=== PATIENT | male | born 1925 | race Caucasian/White ===

== ENCOUNTER 2017-07-19 11:14 | Day surgery (SDC) | payer MEDICARE ==
[~2017-07-19 11:14] MED LIST: CIPROFLOXACIN HCL 500 MG TABLET PO PRN
[2017-07-19] MEDS ORDERED: LIDOCAINE HCL 10 APPL CARTRIDGE TP ONE (12:23)
[2017-07-19 15:05] VITALS: BP 140/71
== END 2017-07-19 11:15 | disposition home or self-care (01) ==
LOC: AMB 11:14
PROVIDERS: ATTEND Urology
PROC: 3E1K88X Irrigation of Genitourinary Tract using Irrigating Substance, Via Natural or Artificial Opening Endoscopic, Diagnostic (ICD-10-PCS; 2017-07-19)
PROC: 0TJB8ZZ Inspection of Bladder, Via Natural or Artificial Opening Endoscopic (ICD-10-PCS; principal; 2017-07-19 12:00)
DX: N40.1 Benign prostatic hyperplasia with lower urinary tract symptoms (principal); N13.8 Other obstructive and reflux uropathy; R33.8 Other retention of urine; I12.9 Hypertensive chronic kidney disease with stage 1 through stage 4 chronic kidney disease, or unspecified chronic kidney disease; N18.9 Chronic kidney disease, unspecified; R73.01 Impaired fasting glucose; Z68.25 Body mass index [BMI] 25.0-25.9, adult